=== PATIENT | female | born 1945 | race Caucasian/White ===

== ENCOUNTER 2017-08-14 10:32 | Emergency (ER) | payer OTHER, MEDICARE ==
--- NOTE | 2017-08-14 10:47 | CPEKG ---
Heart Rate: 108 RR Interval: 556 P-R Interval: 220 QRSD Interval: 76 QT Interval: 324 QTC Interval: 435 P [place]: 76 QRS [place]: -81 T Wave [place]: 55 EKG Severity - ABNORMAL ECG - EKG Impression: SINUS TACHYCARDIA EKG Impression: FIRST DEGREE AV BLOCK EKG Impression: LEFT ANTERIOR FASCICULAR BLOCK EKG Impression: CONSIDER ANTEROSEPTAL INFARCT Electronically Signed By: Malik Moy 18-Aug-2017 14:39:29
[2017-08-14] MEDS ORDERED: LIDOCAINE 2% VISCOUS 15 ML UDCUP PO ONE (10:50)
[2017-08-14] MEDS ORDERED: NS 500 ML IV ONE ×2 (10:50→11:25)
[2017-08-14] MEDS ORDERED: HYOSCYAMINE SULFATE 0.125 MG TAB PO ONE (10:50)
[2017-08-14] MEDS ORDERED: MAG HYDROX/AL HYDROX/SIMETH 30 ML UDCUP PO ONE (10:50)
--- NOTE | 2017-08-14 10:54 | EDPHY ---
H & P Time Seen by Provider: 08/14/17 10:44 HPI/ROS: CHIEF COMPLAINT: Left arm pain, indigestion HISTORY OF PRESENT ILLNESS: Patient is a 71-year-old female with a history of MS bruits sense to the emergency department with left arm discomfort and indigestion. The patient states that her left arm pain started approximately 1 week ago. It has been fairly constant. She had 1 3 hr window when she had no pain but otherwise her left arm pain has been present. It is not worse with movement. She denies any arm swelling or discoloration. No numbness or tingling. Patient also complains of mild indigestion. She has no chest pain. No shortness of breath. No nausea or vomiting. No leg pain or swelling. Patient wears a brace on her left leg at baseline from her MS. REVIEW OF SYSTEMS: My complete review of systems is negative except as mentioned in the HPI. Past Medical/Surgical History: Includes hypertension, MS, left hip fracture Past surgical history: Left hip repair, bilateral tubal ligation, tonsillectomy Social history: The patient is . She does not smoke or drink alcohol. Smoking Status: Never smoked Physical Exam: Vitals noted. Tachycardic at 1:01 a.m.. GENERAL: Well-appearing, in no acute distress, alert. HEENT: Eyes normal to inspection, normal pharynx, no signs of dehydration. NECK: No thyromegaly, no lymphadenopathy, supple. RESPIRATORY: Clear to auscultation bilaterally, no rales, rhonchi or wheezing. CVS: Tachycardia with regular rhythm, no rubs, murmurs, or gallops. ABDOMEN: Soft, nontender, nondistended, no organomegaly. BACK: Normal to inspection, no CVA tenderness. SKIN: Normal color, no rash, warm, dry. No pallor. EXTREMITIES: No pedal edema, no calf tenderness, no Homans sign or cords, no joint swelling. Patient has a brace on her left foot. NEURO/PSYCH: Alert and oriented x3, normal mood and affect, normal motor sensory exam. No obvious cranial nerve deficit. Constitutional: Initial Vital Signs Temperature (C) 36.5 C 08/14/17 10:34 Heart Rate 101 H 08/14/17 10:34 Respiratory Rate 16 08/14/17 10:34 Blood Pressure 144/89 H 08/14/17 10:34 O2 Sat (%) 95 08/14/17 10:34 O2 Delivery Mode Room Air Allergies/Adverse Reactions: amoxicillin trihydrate [From Augmentin] Allergy (Verified 08/14/17 10:33) potassium clavulanate [From Augmentin] Allergy (Verified 08/14/17 10:33) Home Medications: Medication Instructions Recorded Aspirin EC [Aspirin EC 325 mg (*)] 325 mg PO DAILY 08/14/17 Baclofen [Baclofen 10 mg (*)] 10 mg PO TID 08/14/17 Lisinopril [Zestril 5 mg (*)] 5 mg PO 08/14/17 Sulfamethox/Tmp 400/80 mg 1 each PO BID@1000,2000 08/14/17 [Sulfamethoxazole-Tmp SS] hydrOXYzine HCL [Vistaril] 10 mg PO 08/14/17 Medical Decision Making - Diagnostics EKG Interpretation: Sinus tachycardia 108. Left anterior fascicular block. First-degree AV block. Q-wave in V1 and V2. Imaging Results: Imaging Impressions Chest X-Ray 08/14/17 10:46 Impression: Possible airways disease. No pneumonia. Chest/Thorax CTA 08/14/17 11:25 Impression: 1. No evidence of thrombopulmonary embolic disease. 2. Atherosclerotic normal caliber aorta. No dissection or aneurysm. 3. Clear lungs. No acute pulmonary process. 4. Cholelithiasis and small hiatal hernia. Findings discussed with Emergency Department physician, Gini Ward on 08/14, 13:19. ED Course/Re-evaluation: In the emergency department I discussed possible etiologies with the patient. I answered all her questions. The patient took a full-strength aspirin prior to arrival. Laboratory studies, EKG and chest x-ray were ordered. Patient was given a GI cocktail. Patient's D-dimer was elevated 1.95. Patient's chemistry panel was notable for mildly elevated creatinine 1.5. Patient is noted to be tachycardic. Based on the patient's symptoms, tachycardia and D-dimer findings I feel she needs a CT angiogram. I discussed this with the patient and answered all her questions. Patient was given normal saline 500 mL IV prior to imaging. Patient received a GI cocktail. Her ingestion improved. She had no new more symptoms. CT angio chest: Please refer the dictated report. No acute disease noted. I rechecked the patient. She was without complaint. She had mild left arm discomfort. She will follow up with her primary care physician for this. I think is unlikely cardiac. Pain is been constant for days. She is given warnings prior to leaving. She will return with worsening symptoms. Differential Diagnosis: My differential includes but is not limited to ACS, acute MO, dysrhythmia, dissection, aneurysm, GERD, peptic ulcer disease, disc herniation, MS flare, arterial occlusion, venous occlusion - Data Points Laboratory Results: Laboratory Results 08/14/17 10:50 08/14/17 10:50 08/14/17 08/14/17 08/14/17 10:50 10:50 10:50 WBC 8.32 10^3/uL 10^3/uL (3.80-9.50) RBC 4.90 10^6/uL 10^6/uL (4.18-5.33) Hgb 15.1 g/dL g/dL (12.6-16.3) Hct 42.3 % % (38.0-47.0) MCV 86.3 fL fL (81.5-99.8) MCH 30.8 pg pg (27.9-34.1) MCHC 35.7 g/dL g/dL (32.4-36.7) RDW 13.7 % % (11.5-15.2) Plt Count 322 10^3/uL 10^3/uL (150-400) MPV 10.6 fL fL (8.7-11.7) Neut % (Auto) 62.9 % % (39.3-74.2) Lymph % (Auto) 22.7 % % (15.0-45.0) [place] % (Auto) 8.5 % % (4.5-13.0) Eos % (Auto) 4.6 % % (0.6-7.6) Baso % (Auto) 1.1 % % (0.3-1.7) Nucleat RBC Rel Count 0.0 % % (0.0-0.2) Absolute Neuts (auto) 5.23 10^3/uL 10^3/uL (1.70-6.50) Absolute Lymphs (auto) 1.89 10^3/uL 10^3/uL (1.00-3.00) Absolute Monos (auto) 0.71 10^3/uL 10^3/uL (0.30-0.80) Absolute Eos (auto) 0.38 10^3/uL 10^3/uL (0.03-0.40) Absolute Basos (auto) 0.09 10^3/uL 10^3/uL (0.02-0.10) Absolute Nucleated RBC 0.00 10^3/uL 10^3/uL (0-0.01) Immature Gran % 0.2 % % (0.0-1.1) Immature Gran # 0.02 10^3/uL 10^3/uL (0.00-0.10) D-Dimer 1.95 ug/mLFEU H ug/mLFEU (0.00-0.50) Sodium 143 mEq/L mEq/L (135-145) Potassium 4.3 mEq/L mEq/L (3.5-5.2) Chloride 108 mEq/L mEq/L (97-110) Carbon Dioxide 19 mEq/l L mEq/l (22-31) Anion Gap 16 mEq/L mEq/L (8-16) BUN 49 mg/dL H mg/dL (7-23) Creatinine 1.5 mg/dL H mg/dL (0.6-1.0) Estimated GFR 34 Glucose 113 mg/dL H mg/dL (70-100) Calcium 10.6 mg/dL H mg/dL (8.5-10.4) Total Bilirubin 0.4 mg/dL mg/dL (0.1-1.4) Conjugated Bilirubin 0.2 mg/dL mg/dL (0.0-0.5) Unconjugated Bilirubin 0.2 mg/dL mg/dL (0.0-1.1) AST 35 IU/L IU/L (14-46) ALT 52 IU/L IU/L (9-52) Alkaline Phosphatase 112 IU/L IU/L (38-126) Troponin I < 0.012 ng/mL ng/mL (0.000-0.034) Total Protein 7.4 g/dL g/dL (6.3-8.2) Albumin 3.9 g/dL g/dL (3.5-5.0) Lipase 374 IU/L H IU/L (23-300) Medications Given: Discontinued Medications Al Hydroxide/Mg Hydroxide (Maalox Susp) 30 ml PO ONCE ONE Stop: 08/14/17 10:51 Last Admin: 08/14/17 11:06 Dose: 30 ml Hyoscyamine Sulfate (Levsin, Hyomax-Sl) 0.25 mg PO ONCE ONE Stop: 08/14/17 10:51 Last Admin: 08/14/17 11:05 Dose: 0.25 mg Sodium Chloride (Ns) 500 mls @ 1,000 mls/hr IV EDNOW ONE PRN Reason: Protocol Stop: 08/14/17 11:19 Last Admin: 08/14/17 11:04 Dose: 500 mls Sodium Chloride (Ns) 500 mls @ 0 mls/hr IV ONCE ONE PRN Reason: Wide Open Stop: 08/14/17 11:26 Last Admin: 08/14/17 11:37 Dose: 500 mls Lidocaine (Lidocaine 2% Viscous) 15 ml PO ONCE ONE Stop: 08/14/17 10:51 Last Admin: 08/14/17 11:06 Dose: 15 ml Departure - Departure Disposition: Home, Routine, Self-Care Clinical Impression: Indigestion Arm pain Qualifiers: Laterality: left Qualified Code(s): M79.602 - Pain in left arm Condition: Good Instructions: Arm Pain (ED), Indigestion (ED) Additional Instructions: Your CT scan was unremarkable. Return with increasing chest pain or shortness of breath. Follow up with your primary care physician. Referrals: Leticia Menjivar MD [Primary Care Provider] - 2-3 days without fail
[2017-08-14 10:56] LABS: PLATELET COUNT 322 10^3/uL (150-400)
[2017-08-14] MEDS ORDERED: IOPAMIDOL (ISOVUE 370) 100 ML BTL IV ONE (11:50)
[2017-08-14 13:43] VITALS: BP 148/81; PULSE 100; RESP 12; TEMP 97.2; O2SAT 96
== END 2017-08-14 13:46 | disposition home or self-care (01) ==
PROC: 3E0337Z Introduction of Electrolytic and Water Balance Substance into Peripheral Vein, Percutaneous Approach (ICD-10-PCS; principal; 2017-08-14)
DX: K30 Functional dyspepsia (principal); M79.602 Pain in left arm; I10 Essential (primary) hypertension; E86.9 Volume depletion, unspecified; Z79.82 Long term (current) use of aspirin
CPT/HCPCS: 71046; 71275; 93005; 96360; 99284; Q9967

== ENCOUNTER 2018-07-13 16:03 | Emergency (ER) | payer OTHER, MEDICARE ==
[2018-07-13] MEDS ORDERED: MECLIZINE HCL 25 MG TAB PO ONE (16:42)
--- NOTE | 2018-07-13 16:42 | EDPHY ---
H & P Stated Complaint: htn/ feeling dizzy Time Seen by Provider: 07/13/18 16:24 HPI/ROS: CHIEF COMPLAINT: Hypertension HISTORY OF PRESENT ILLNESS: The patient is a 72-year-old female with a history of MS and anxiety who went to the urgent care today complaining of paroxysmal vertigo that began while she was lying down getting stretched by her 9: 00 a.m. This morning. No hearing or vision changes. No headache. No trauma. No fevers or recent illness. She has never had an MS flare like this before and has not had an MS flare for more than 5 years. She does not take immunosuppressants. No focal weakness or deficits. No speech abnormalities. She presented to the urgent care was concerned because she had an elevated blood pressure. They recommended she come here. She denies chest pain or shortness of breath. No headache. Is she describes her symptoms as vertiginous and not lightheaded. Severity: Moderate Modifying factors: None REVIEW OF SYSTEMS: Constitutional: denies: chills, fever, recent illness, recent injury EENTM: denies: blurred vision, double vision, nose congestion Respiratory: denies: cough, shortness of breath Cardiac: denies: chest pain, irregular heart rate, lightheadedness, palpitations Gastrointestinal/Abdominal: denies: abdominal pain, diarrhea, nausea, vomiting, blood streaked stools Genitourinary: denies: dysuria, frequency, hematuria, pain Musculoskeletal: denies: joint pain, muscle pain Skin: denies: lesions, rash, jaundice, bruising Neurological: See HPI denies: headache, numbness, paresthesia, tingling, dizziness, weakness Hematologic/Lymphatic: denies: blood clots, easy bleeding, easy bruising Immunologic/allergic: denies: HIV/AIDS, transplant 10 systems reviewed and negative except as noted EXAM: GENERAL: Well-appearing, well-nourished and in no acute distress. HEAD: Atraumatic, normocephalic. EYES: Pupils equal round and reactive to light, extraocular movements intact, sclera anicteric, conjunctiva are normal. ENT: TMs normal, nares patent, oropharynx clear without exudates. Moist mucous membranes. Slight nystagmus to the right that resolved with time NECK: Normal range of motion, supple without lymphadenopathy or JVD. LUNGS: Breath sounds clear to auscultation bilaterally and equal. No wheezes rales or rhonchi. HEART: Regular rate and rhythm without murmurs, rubs or gallops. ABDOMEN: Soft, nontender, normoactive bowel sounds. No guarding, no rebound. No masses appreciated. BACK: No CVA tenderness, no spinal tenderness, step-offs or deformities EXTREMITIES: Normal range of motion, no pitting or edema. No clubbing or cyanosis. NEUROLOGICAL: Cranial nerves II through XII grossly intact. Normal speech, normal gait. 5/5 strength, normal movement in all extremities, normal sensation , normal reflexes. Slight nystagmus to the right to the resolves the. Symptoms worsen with certain positioning but then resolved. Recommended we put her through the Hallpike maneuver but she declines. Normal head impulse testing although she was not the currently having symptoms, normal test of skew. PSYCH: Normal mood, normal affect. SKIN: Warm, dry, normal turgor, no visible rashes or lesions. Source: Patient Exam Limitations: No limitations - Personal History Current Tetanus Diphtheria and Acellular Pertussis (TDAP): No - Medical/Surgical History Hx Asthma: No Hx Chronic Respiratory Disease: No Hx Diabetes: No Hx Cardiac Disease: No Hx Renal Disease: No Hx Cirrhosis: No Hx Alcoholism: No Hx HIV/AIDS: No Hx Splenectomy or Spleen Trauma: No Other PMH: HTN. MS - Family History Significant Family History: No pertinent family hx - Social History Smoking Status: Never smoked Alcohol Use: None Constitutional: Initial Vital Signs Temperature (C) 36.4 C 07/13/18 16:12 Heart Rate 108 H 07/13/18 16:12 Respiratory Rate 18 07/13/18 16:12 Blood Pressure 160/104 H 07/13/18 16:12 O2 Sat (%) 96 07/13/18 16:12 O2 Delivery Mode Room Air Allergies/Adverse Reactions: amoxicillin trihydrate [From Augmentin] Allergy (Verified 07/13/18 16:11) potassium clavulanate [From Augmentin] Allergy (Verified 07/13/18 16:11) Home Medications: Medication Instructions Recorded Baclofen [Baclofen 10 mg (*)] 10 mg PO TID 08/14/17 Lisinopril [Zestril 5 mg (*)] 5 mg PO 08/14/17 Sulfamethox/Tmp 400/80 mg 1 each PO BID@1000,199908/14/17 [Sulfamethoxazole-Tmp SS] hydrOXYzine HCL [Vistaril] 10 mg PO 08/14/17 Meclizine HCl [Meclizine HCl 25 mg 25 mg PO BID #20 tab 07/13/18 (RX,OTC)] Medical Decision Making - Diagnostics EKG Interpretation: An EKG obtained and was read and documented in trace view. Please see trace view for full reading and report. Sinus tachycardia, no acute ischemic changes or arrhythmias. ED Course/Re-evaluation: I reassured the patient that her blood pressure is likely secondary to the vertigo rather than the primary the problem. She was happy with this but then felt like she did not need to be here. We discussed the treatment for the paroxysmal vertigo. It has features more consistent with a peripheral vertigo than a central vertigo however because of her history of MS have recommended we do an MRI to evaluate. She declines this and states that she is actually feeling much better. We discussed Hallpike maneuver which she declines. She did agree to take the meclizine but otherwise would like to go home. I did advise her to keep track of her blood pressure and follow up with her primary for trending and recommendations. 5:40 p.m. the patient feels completely better after meclizine. She has been up and about. No lightheadedness or dizziness. She again declines further workup for central cause of vertigo. Her blood pressure has resolved on its own. I advised her to follow up with her primary physician for the blood pressure. Will refer her to ENT for the vertigo. Will prescribe meclizine. We discussed indications for returning. Differential Diagnosis: Partial list of the Differential diagnosis considered include but were not limited to; peripheral vertigo, anxiety, hypertension and although unlikely based on the history and physical exam, I also considered acute coronary disease , arrhythmia, central vertigo. I discussed these differential diagnoses and the plan with the patient as well as the usual and expected course. The patient understands that the diagnosis is provisional and that in medicine we are not always correct and that further workup is often warranted. Usual and customary warnings were given. All of the patient's questions were answered. The patient was instructed to return to the emergency department should the symptoms at all worsen or return, otherwise to followup with the physician as we discussed. - Data Points Medications Given: Discontinued Medications Meclizine HCl (Meclizine Hcl) 50 mg PO EDNOW ONE Stop: 07/13/18 16:43 Last Admin: 07/13/18 16:52 Dose: 50 mg Departure - Departure Disposition: Home, Routine, Self-Care Clinical Impression: Peripheral vertigo Qualifiers: Laterality: right Qualified Code(s): H81.391 - Other peripheral vertigo, right ear Hypertension Qualifiers: Hypertension type: unspecified Qualified Code(s): I10 - Essential (primary) hypertension Condition: Fair Instructions: Benign Paroxysmal Positional Vertigo (ED), Hypertension (ED) Referrals: Leticia Menjivar MD [Primary Care Provider] - As per Instructions Mark,Laney, PAC [Physician [address] [facility]] - 3-4 days, if not improved Prescriptions: Meclizine HCl [Meclizine HCl 25 mg (RX,OTC)] 25 mg PO BID #20 tab
--- NOTE | 2018-07-13 16:50 | CPEKG ---
Test Reason : OPEN Blood Pressure : / mmHG Vent. Rate : 102 BPM Atrial Rate : 102 BPM P-R Int : 221 ms QRS Dur : 086 ms QT Int : 350 ms P-R-T Axes : 079 -79 071 degrees QTc Int : 456 ms Sinus tachycardia Prolonged MI interval Probable left atrial enlargement Left anterior fascicular block Low voltage, precordial leads Probable anteroseptal infarct, old Confirmed by Tyree Coker ([id number]) on 07/13/2018 4:49:46 PM Referred By: Confirmed By:Tyree Coker
[2018-07-13 18:05] VITALS: BP 160/86
== END 2018-07-13 18:05 | disposition home or self-care (01) ==
DX: H81.391 Other peripheral vertigo, right ear (principal); I10 Essential (primary) hypertension; G35 Multiple sclerosis; F41.9 Anxiety disorder, unspecified